=== PATIENT | male | born 1975 | race Caucasian/White ===

== ENCOUNTER 2022-03-11 07:56 | Outpatient (CLI) | payer OTHER | END 2022-03-11 07:57 | disposition home or self-care (01) | LOC: SCSMRI 07:56 | PROVIDERS: ATTEND Surgery | DX: M51.16 Intervertebral disc disorders with radiculopathy, lumbar region (principal); M47.26 Other spondylosis with radiculopathy, lumbar region; M47.27 Other spondylosis with radiculopathy, lumbosacral region | CPT/HCPCS: 72120; 72148 ==